=== PATIENT | male | born 1945 | race Caucasian/White ===

== ENCOUNTER → 2020-06-20 | Outpatient (CLI) | payer MEDICARE | END | disposition home or self-care (01) | LOC: STAR 16:13 | PROVIDERS: ATTEND Anesthesiology | DX: Z20.828 Contact with and (suspected) exposure to other viral communicable diseases (principal) | CPT/HCPCS: 87635 ==

== ENCOUNTER 2020-06-24 11:41 | Outpatient (CLI) | payer MEDICARE ==
[2020-06-24] MEDS ORDERED: CARV-39 PO (13:20)
[2020-06-24] MEDS ORDERED: ROSU10TA2 PO (13:20)
[2020-06-24] MEDS ORDERED: LOSA25TA25 PO (13:20)
[2020-06-29] MEDS ORDERED: AMIO200T42 PO (09:09)
[2020-06-29] MEDS ORDERED: CLOP75TA PO (09:09)
[2020-06-29] MEDS ORDERED: HYDR-3237 PO (09:09)
[2020-06-29] MEDS ORDERED: FURO40TA6 PO (09:09)
[2020-06-29] MEDS ORDERED: ASPI81TA45 PO (09:09)
[2020-06-29] MEDS ORDERED: POTA20TA6 PO (09:09)
[2020-06-29] MEDS ORDERED: ROSU20TA2 PO (09:30)
== END 2020-06-24 23:59 | disposition home or self-care (01) ==
LOC: CACL 11:41 → LAB 11:41 → CACL 23:59
PROVIDERS: ATTEND Internal Medicine Interventional Cardiology
DX: Z01.818 Encounter for other preprocedural examination (principal); I25.10 Atherosclerotic heart disease of native coronary artery without angina pectoris; I50.20 Unspecified systolic (congestive) heart failure
CPT/HCPCS: 36415; 86900